=== PATIENT | female | born 1965 | race American Indian/Alaskan Native ===

== ENCOUNTER 2021-10-31 15:11 | Emergency (ER) | payer MEDICAID, SELFPAY ==
--- NOTE | ~2021-10-31 | XR_ITS ---
EXAMINATION: RIGHT FOOT, RIGHT ANKLE AND RIGHT KNEE CLINICAL INFORMATION: Pain. COMPARISON: None TECHNIQUE: Right foot 3 views, right ankle 2 views and right knee 4 views. FINDINGS: RIGHT FOOT: There is no visible acute fracture or dislocation right ankle. The soft tissues are normal. RIGHT ANKLE: There is a oblique minimally displaced distal fibular fracture. There is a small avulsion fracture fragment dorsal talus.. The ankle mortise and subtalar joints are normal. Mild bimalleolar soft tissue swelling is seen. RIGHT KNEE: The tricompartment joint space is maintained normal. No visible acute fracture, dislocation or subluxation seen. The soft tissues are normal. XR/XR knee RT 4V IMPRESSION: Oblique fracture distal fibula and a small avulsion fracture dorsal talus. Mild bimalleolar soft tissue swelling. No additional fracture seen in the foot. Unremarkable right knee exam.
--- NOTE | ~2021-10-31 | XR_ITS ---
EXAMINATION: RIGHT FOOT, RIGHT ANKLE AND RIGHT KNEE CLINICAL INFORMATION: Pain. COMPARISON: None TECHNIQUE: Right foot 3 views, right ankle 2 views and right knee 4 views. FINDINGS: RIGHT FOOT: There is no visible acute fracture or dislocation right ankle. The soft tissues are normal. RIGHT ANKLE: There is a oblique minimally displaced distal fibular fracture. There is a small avulsion fracture fragment dorsal talus.. The ankle mortise and subtalar joints are normal. Mild bimalleolar soft tissue swelling is seen. RIGHT KNEE: The tricompartment joint space is maintained normal. No visible acute fracture, dislocation or subluxation seen. The soft tissues are normal. XR/XR ankle RT min 3V IMPRESSION: Oblique fracture distal fibula and a small avulsion fracture dorsal talus. Mild bimalleolar soft tissue swelling. No additional fracture seen in the foot. Unremarkable right knee exam.
--- NOTE | ~2021-10-31 | XR_ITS ---
EXAMINATION: RIGHT FOOT, RIGHT ANKLE AND RIGHT KNEE CLINICAL INFORMATION: Pain. COMPARISON: None TECHNIQUE: Right foot 3 views, right ankle 2 views and right knee 4 views. FINDINGS: RIGHT FOOT: There is no visible acute fracture or dislocation right ankle. The soft tissues are normal. RIGHT ANKLE: There is a oblique minimally displaced distal fibular fracture. There is a small avulsion fracture fragment dorsal talus.. The ankle mortise and subtalar joints are normal. Mild bimalleolar soft tissue swelling is seen. RIGHT KNEE: The tricompartment joint space is maintained normal. No visible acute fracture, dislocation or subluxation seen. The soft tissues are normal. XR/XR foot RT min 3V IMPRESSION: Oblique fracture distal fibula and a small avulsion fracture dorsal talus. Mild bimalleolar soft tissue swelling. No additional fracture seen in the foot. Unremarkable right knee exam.
[2021-10-31 15:30] VITALS: BP 145/68; PULSE 86; RESP 20; TEMP 36.1; O2SAT 96; BMI 34.9
--- NOTE | 2021-10-31 18:38 | ED.LOWEXIN ---
HPI - Extremity Injury (Lower) General Chief Complaint: Extremity Injury, Lower Stated Complaint: fall - rt ankle,knee pain Time Seen by Provider: 10/31/21 18:12 Source: patient Mode of arrival: ambulatory Limitations: no limitations History of Present Illness HPI Narrative: 56-year-old female presents to ED for right ankle pain due to fall that occurred today. Patient states she walked ice and slipped and she fell unto her right ankle. Patient denies hitting head or loss of consciousness. Patient states also having right knee pain due to twisting of knee while falling. Patient denies any chest pain, shortness of breath, headache, abdominal pain, rectal bleeding, vomiting blood, dizziness, bloody urine, or back pain Related Data Previous Rx's Medication Instructions Recorded naproxen 500 mg tablet 500 mg PO BID PRN 10 Days #20 tab 10/31/21 oxycodone-acetaminophen 5 mg-325 1 tab PO TID PRN 3 Days #9 tab 10/31/21 mg tablet (Percocet) Allergies Allergy/AdvReac Type Severity Reaction Status Date / Time Penicillins [PENICILLINS] Allergy Unknown HIVES Unverified 07/09/20 16:24 Review of Systems Review of Systems: mechanical fall. knee and ankle pain. Yes all other systems are reviewed and are negative [facility] Past Medical History Medical History (Updated 10/31/21 @ 20:45 by TAYLOR Pugh) No known health problems Social History Social History Advance Directives: No Advance Directives Information Provided: No Physical Exam Vital Signs: Vital Signs: Last Vital Signs Temp 96.9 F 10/31/21 15:30 Pulse 82 10/31/21 21:15 Resp 17 10/31/21 21:15 BP 146/66 H 10/31/21 21:15 Pulse Ox 97 10/31/21 21:15 BMI result Body Mass Index 34.9 Const: General: cooperative, healthy appearing, comfortable, no acute distress, well developed, alert, awake and Physically active Orientation/consciousness: oriented to time and patient oriented x3 HENMT: Head: Yes normal to inspection, Yes No palpable skull fracture present, Yes normocephalic, Yes atraumatic and No abrasion Eyes: General: appearance normal, both eyes and all related structures Neck: Neck: Yes normal visual inspection, Yes full ROM, Yes no lymphadenopathy, Yes no meningeal signs, Yes trachea midline, Yes supple, No anterior neck swelling and No tender Chest: Chest palpation & inspection: normal inspection of the chest and normal palpation of entire chest wall Resp: Effort & Inspection: normal respiratory effort and able to speak in complete sentences Auscultation: clear to auscultation bilaterally Cardio: Jugular venous distension: no JVD Heart sounds: S1 normal heart sound present and S2 normal heart sound present GI: Inspection: Yes normal to inspection and No abdominal wall ecchymosis Palpation (GI): Soft to palpation, not firm, nontender and no guarding : General: No CVA tenderness and Yes no CVA tenderness Back/Spine/Pelvis: Back: no CVA tenderness, No CVA tenderness and No back tenderness Skin: General skin exam: no rashes or lesions noted and elasticity normal Neuro: General: oriented to time, patient oriented x3, tone normal, no meningeal signs and CN's II-XI intact bilaterally Extrem: General: Yes normal to inspection and Yes full ROM Upper/lower leg/hip images: 1. positive for swelling and tenderness on palpation. negative for any ecchymosis, redness, warmth, or deformity. Vascular and neuro exam intact of lower extremity. Motor exam inatact, but limited but due to pain. Knee images: 1. tenderness on palpation. negative for erythema, ecchymosis, elasticity, deformity, warmth, or coldness. popiteal pulses intact. Psych: Appearance: grossly normal, well kempt and not disheveled Course Course Course Narrative: Patient sent for images of knee foot and ankle. Reevaluation(s) Reevaluation #1: X-ray shows stylist and is stable a fracture patient will be placed in a posterior splint with stirrups Time: 19:09 MDM - Extremity Injury (Lower) [facility] Narrative Medical decision making narrative: Distal fibular fracture Discharge Plan Discharge Clinical Impression: Fracture of distal end of fibula, Avulsion fracture of talus Patient Disposition: Home, Self-Care Instructions: Leg Fracture (ED), Avulsion Fracture (ED) Additional Instructions: You have a fracture in your leg and small fracture in her foot. You need to follow-up with orthopedic surgeon as outpatient. You will be discharged with pain medication. Return to the ED immediately for severe swelling, bluish discoloration of toes, severe pain, calf pain, chest pain, shortness of breath, redness, or any other concerning symptoms. Prescriptions: New oxycodone-acetaminophen [Percocet] 5-325 mg tablet 1 tab PO TID PRN (Reason: pain) 3 Days Qty: 9 RF: 0 naproxen 500 mg tablet 500 mg PO BID PRN (Reason: pain) 10 Days Qty: 20 RF: 0 Referrals: Luis Real MD [Physician] - 2 days (Distal fibula and dorsal talus fracture) Interventions: ED Discharge Assessment Last Done: 10/31/21 21:40 Discharge Date/Time: 10/31/21 22:39 Print Language: Persian
[2021-10-31] MEDS: oxyCODONE HCl Immed Release 5 MG TABLET PO (19:38)
--- NOTE | 2021-10-31 20:41 | PC.NURSE ---
This tech applied a short posterior and sugar tounge to rt leg,per provider Dawson. RN at bedside pt tolerated procdure well. Dawson checked for placement.RN aware
[2021-10-31 21:15] VITALS: BP 146/66; PULSE 82; RESP 17; O2SAT 97
== END 2021-10-31 22:39 | disposition home or self-care (01) ==
PROVIDERS: Emergency Provider Emergency Medicine
DX: S82.831A Other fracture of upper and lower end of right fibula, initial encounter for closed fracture (principal); M25.571 Pain in right ankle and joints of right foot; W00.0XXA Fall on same level due to ice and snow, initial encounter; Y93.9 Activity, unspecified; Y92.9 Unspecified place or not applicable; Y99.9 Unspecified external cause status; Z79.899 Other long term (current) drug therapy
CPT/HCPCS: 29515; 73564; 73610; 73630; 99284

== ENCOUNTER → 2021-11-03 08:38 | Outpatient (BNVA) | payer MEDICAID, SELFPAY | PROVIDERS: Visit Provider Physician Assistant | DX: S82.831A Other fracture of upper and lower end of right fibula, initial encounter for closed fracture (principal) | CPT/HCPCS: 99202 ==

== ENCOUNTER 2021-11-17 07:53 | Outpatient (REF) | payer MEDICAID, SELFPAY ==
--- NOTE | ~2021-11-17 | XR_ITS ---
EXAMINATION: XR ANKLE, RIGHT CLINICAL INFORMATION: Right ankle pain. COMPARISON: Right foot and ankle radiographs dated 10/31/2021. TECHNIQUE: AP, lateral, and mortise views of the right ankle. FINDINGS: Mildly displaced, oblique fracture redemonstrated through the distal fibula in unchanged anatomic alignment. Redemonstration of a small fracture fragment dorsal to the talar neck as well as additional small fracture fragments adjacent to the anterior tibia, unchanged. Circumferential soft tissue swelling. XR/XR ankle RT min 3V IMPRESSION: Distal fibular fracture as well as small anterior fracture fragment adjacent to the tibia and talus, unchanged. Circumferential soft tissue swelling.
== END 2021-11-17 07:54 | disposition home or self-care (01) ==
LOC: HO.HOSX 07:53
PROVIDERS: Visit Provider Physician Assistant
DX: S82.831D Other fracture of upper and lower end of right fibula, subsequent encounter for closed fracture with routine healing (principal)
CPT/HCPCS: 73610; 99212

== ENCOUNTER 2021-12-15 11:10 | Outpatient (REF) | payer MEDICAID, SELFPAY ==
--- NOTE | ~2021-12-15 | XR_ITS ---
EXAMINATION: XR ANKLE, RIGHT CLINICAL INFORMATION: Fracture COMPARISON: Previous x-rays most recent October 2021 TECHNIQUE: AP, lateral, and mortise views of the right ankle. FINDINGS: There is an oblique fracture of the right distal tibial shaft. This appears unchanged in alignment. Fracture line appears to the more indistinct suggestive of evidence of healing. Fracture of the anterior talus appears unchanged.. There is mild arthritis at the tibiotalar joint joint. The ankle mortise is otherwise normal. Soft tissues are normal. XR/XR ankle RT min 3V IMPRESSION: Healing distal fibular shaft fracture. No change in small avulsion fracture of the anterior talus.
== END 2021-12-15 11:11 | disposition home or self-care (01) ==
LOC: HO.HOSX 11:10
PROVIDERS: Visit Provider Physician Assistant
DX: S82.831D Other fracture of upper and lower end of right fibula, subsequent encounter for closed fracture with routine healing (principal)
CPT/HCPCS: 73610; 99212

== ENCOUNTER 2022-01-28 09:00 | Outpatient (RCR) | payer MEDICAID, SELFPAY ==
--- NOTE | 2021-12-22 09:01 | MHC.PT.EP ---
[facility] [place] Office [place] Office [place] Office [address] [address] [phone] F: [phone] F: [phone] F: [phone] F: [phone] Physical Therapy Plan of Care Date of Evaluation: Date of Surgery: n/a Diagnosis: fx of R fibula Assessment: Patient is a 56 year old female presenting to PT s/p R fibula fx on 10/31/2021 due to slipping and falling on ice. She presents today with impairments in pain, ankle ROM, ankle strength, hip strength, balance, and gait mechanics. Pt's current occupation is none, with baseline physical activities including standing, ambulation, and stair negotiation, ADLs. 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 Clinical presentation today is most consistent with signs and sx associated with R fibula fx and pt will benefit from skilled PT to address the following problems and impairments noted upon evaluation: pain, ankle ROM, ankle strength, hip strength, balance, and gait mechanics. These problems limit the patient with the following functional activities: standing, ambulation, and stair negotiation, ADLs. The prescribed treatment plan of care is medically necessary. Co-morbidities of hx kidney removal were identified and taken into considerations of plan of care. Pt was educated on HEP, role of PT, prognosis, POC. Frequency and Duration: The patient will be seen 2 x week x 5 weeks Short Term Goals: Pt will demonstrate equal ankle AROM in all directions in 3 weeks for improved gait mechanics. Pt will demonstrate improved ankle strength by 1/3 MMT in 3 weeks. Pt will demonstrate ability to guide alpine tandem stance x 20 sec with min to mod sway in 3 weeks for improved balance. Pt will demonstrate improved hip strength B in 3 weeks for improved lumbopelvic stability. Assisted Goals: Pt will demonstrate ability to stand x 20 min with min to no pain in 5 weeks for improved tolerance to washing the dishes. Pt will demonstrate ability to ambulate community distances with good mechanics and with min to no pain in 5 weeks for improved access to the community. Pt will demonstrate ability to negotiate stairs step over step with min to no discomfort in 5 weeks for return to PLOF. Treatment Plan: Modalities to reduce pain, spasms and effusion. Manual therapy to restore motion and function. Therapeutic exercise to improve strength and flexibility. Neuromuscular re-education for posture and balance. Therapeutic activities to return to functional activities of daily living. Electronically signed by: Rani Mata, PT, DPT, ATC Please sign and return to therapist. Thank you for your referral.
--- NOTE | 2022-01-28 10:14 | MHC.PT.DC ---
[facility] [place] Office [place] Office [place] Office [address] [phone] F: [phone] F: [phone] F: [phone] F: [phone] Physical Therapy Discharge Report Diagnosis: fx of R fibula Date of Surgery: n/a Date of Evaluation: 12/22/21 Date of Discharge: 01/28/22 Treatments to Date: 10 Cancellations to Date: 1 No Shows to Date: 1 Discharge Status: Recommend MD Follow-up Discharge Summary: Pt has unfortunately appeared to reach a plateau with skilled PT. She has made some progress since start of care but has met few of her goals. She has also actually score worse on the LEFI after 5 weeks of PT compared to the start of care supporting lack of progress. She appears to be most limited by pain which is preventing her from progressing further. She really has tolerated minimal standing and functional exercises up to this point as a result of pain and is unable to be progressed further at this time. Unclear how compliant pt is with HEP due lack of progress to this point. Extensive discussion about importance of compliance with HEP at home as it is not appropriate to continue skilled PT due to lack of progress. Also discussed pain after an injury like this and educated her that it can linger for some time. Pt understanding of this. At this point max benefits of PT have been provided and skilled PT is no longer indicated at this time. Advised pt to continue with HEP for a few more weeks and if pain and functional limitation continues then to follow up with ortho. Pt with good understanding and agreement with this plan. Electronically signed by: Rani Mata, PT, DPT, ATC Please sign and return to therapist. Thank you for your referral.
== END 2022-01-28 10:16 | disposition home or self-care (01) ==
LOC: HO.PTCHIC 09:00
PROVIDERS: PCP Internal Medicine; Visit Provider Physician Assistant
DX: S82.831D Other fracture of upper and lower end of right fibula, subsequent encounter for closed fracture with routine healing (principal)
CPT/HCPCS: 97110; 97112; 97140; 97161